=== PATIENT | male | born 1990 | race African-American/Black ===

== ENCOUNTER 2018-01-27 15:06 | Emergency (ER) | payer MEDICAID ==
[~2018-01-27] VITALS: Ht 188 cm; Wt 66.0 kg
[2018-01-27 21:29] VITALS: BP 131/82
== END 2018-01-27 21:44 | disposition home or self-care (01) ==
LOC: ER 17:06
DX: L21.9 Seborrheic dermatitis, unspecified (principal); Z98.890 Other specified postprocedural states
CPT/HCPCS: 99283